=== PATIENT | female | born 1955 | race African-American/Black ===

== ENCOUNTER 2016-12-19 17:00 | Emergency (ER) | payer MEDICARE, OTHER | END 2016-12-19 18:14 | disposition home or self-care (01) | LOC: ER 17:00 | DX: M25.552 Pain in left hip (principal); M54.9 Dorsalgia, unspecified; G89.29 Other chronic pain; I10 Essential (primary) hypertension; E11.40 Type 2 diabetes mellitus with diabetic neuropathy, unspecified; Z90.710 Acquired absence of both cervix and uterus | CPT/HCPCS: 73502-LT; 96372; 99283; J1885 ==